=== PATIENT | female | born 1940 | race Caucasian/White ===

== ENCOUNTER → 2017-02-13 | Outpatient (CLI) | payer MEDICARE ==
[~2017-02-13] MED LIST: ASCO500T29 PO; ASPI-496 PO; CHOL10003 PO; DEXA4TAB PO; LISI-167 PO; MAGN400T7 PO; METF10002 PO; MULT-208 PO; ONDA4TAB10 PO
[2017-02-13 09:22] LABS: BLOOD UREA NITROGEN 17 mg/dL (7-18)
[2017-02-13 09:26] LABS: ASPARTATE AMINO TRANSFERASE 14 U/L (15-37)
== END | disposition home or self-care (01) ==
LOC: STAR 07:22
PROVIDERS: ATTEND Specialist
DX: Z01.818 Encounter for other preprocedural examination (principal); C54.9 Malignant neoplasm of corpus uteri, unspecified; R79.1 Abnormal coagulation profile; Z90.710 Acquired absence of both cervix and uterus; Z90.722 Acquired absence of ovaries, bilateral
CPT/HCPCS: 36415; 71020; 80053; 85025; 85610; 85730; 93005

== ENCOUNTER 2017-03-12 08:15 | Day surgery (SDC) | payer MEDICARE ==
[~2017-03-12] VITALS: Ht 152.4 cm; Wt 65.5 kg
[~2017-03-12 08:15] MED LIST changes: +BUPIVACAINE/PF-EPI 0.25% 1:200K ONE
[2017-03-12] MEDS ORDERED: NEOSTIGMINE 1 MG/ML, 10ML ONE (10:23)
[2017-03-12] MEDS ORDERED: ONDANSETRON 2MG/ML, 2ML ONE (10:23)
[2017-03-12] MEDS ORDERED: GLYCOPYRROLATE 0.2MG/1ML ONE (10:23)
[2017-03-12] MEDS ORDERED: PROPOFOL 10 MG/ML, 20ML ONE (10:23)
[2017-03-12] MEDS ORDERED: ROCURONIUM 10 MG/ML ONE (10:23)
[2017-03-12] MEDS ORDERED: DEXAMETHASONE 4 MG/ML, 1ML ONE (10:23)
[2017-03-12] MEDS ORDERED: METOCLOPRAMIDE 5 MG/ML, 2ML ONE (10:23)
[2017-03-12] MEDS ORDERED: CEFAZOLIN 1,000 MG ONE (10:23)
[2017-03-12] MEDS ORDERED: HYDROmorphone 1 MG/ML, 1ML ONE (10:24)
[2017-03-12] MEDS ORDERED: FENTANYL PF 250 MCG/5ML ONE (10:24)
[2017-03-12] MEDS ORDERED: KETOROLAC 30 MG/1 ML ONE (12:41)
[2017-03-12] MEDS ORDERED: OXYcodone 5 MG/5 ML ORAL.SOL UDC ONE (13:23)
[2017-03-12] MEDS ORDERED: FENTANYL PF 100 MCG/2ML ONE (13:23)
[2017-03-14] MEDS ORDERED: KETOROLAC 30 MG/1 ML IVPush PRN ×2 (10:00→10:11)
[2017-03-14] MEDS ORDERED: FENTANYL PF 100 MCG/2ML IV PRN (10:00)
[2017-03-14] MEDS ORDERED: OXYcodone 5 MG/5 ML ORAL.SOL UDC PO PRN (10:00)
[2017-03-15] MEDS ORDERED: LACTATED RINGERS 1,000 ML IV SCH (12:16)
== END 2017-03-12 17:00 ==
LOC: OR 08:15 → EDSTATUS 03-16 08:30
PROVIDERS: ATTEND Specialist
DX: C54.1 Malignant neoplasm of endometrium (principal); M79.89 Other specified soft tissue disorders; E11.9 Type 2 diabetes mellitus without complications; F41.9 Anxiety disorder, unspecified; Z90.49 Acquired absence of other specified parts of digestive tract; Z98.890 Other specified postprocedural states; Z72.89 Other problems related to lifestyle
CPT/HCPCS: 36415; 58571; 74000; 82962; 86850; 86900; 86920; 88112; 88304; 88305; 88309; 88341; 88342; J0690; J1100; J1170; J1885; J2405; J2704; J2710; J2765; J3010; 86923; J3490; G0461; J7120

== ENCOUNTER → 2020-04-19 | Outpatient (CLI) | payer MEDICARE ==
[~2020-04-19] MED LIST changes: +ASCO-90 PO; -ASCO500T29 PO; -BUPIVACAINE/PF-EPI 0.25% 1:200K ONE; -MAGN400T7 PO; +MAGN400T9 PO; +OMNIPAQUE 350 MG/ML, 100ML BOTTLE ONE
== END | disposition home or self-care (01) ==
LOC: CFH 10:15
PROVIDERS: ATTEND Registered Nurse Maternal Newborn
DX: C54.1 Malignant neoplasm of endometrium (principal); K42.9 Umbilical hernia without obstruction or gangrene; Z90.49 Acquired absence of other specified parts of digestive tract; Z90.710 Acquired absence of both cervix and uterus
CPT/HCPCS: 74177; Q9967